=== PATIENT | female | born 1980 | race Caucasian/White ===

== ENCOUNTER 2023-12-23 09:28 | Observation (INO) | payer OTHER, SELFPAY ==
[2023-12-23] VITALS (35 sets, daily range): BP systolic 110–141; BP diastolic 72–92; PULSE 72–94; RESP 10–25; TEMP 36.3–36.6; O2SAT 93–99
--- NOTE | 2023-12-23 09:30 | RT.EKG_ITS ---
APPROVED REPORT Exam: Resting ECG Reason for Exam: CP + SOB Patient Location: E HR:87 bpm ECG Measurements Heart Rate 87 AXIS TN 135 P 69 QRSd 83 QRS 60 QT 364 T 53 QTc 439 Conclusion Sinus rhythm...normal P axis, V-rate 60- 99 Probable left atrial enlargement...P >50mS, <-0.10mV V1
--- NOTE | 2023-12-23 09:56 | DI.CT_ITS ---
Exam(s) CT CHEST PE CTA EXAM: CT CHEST PE CTA CLINICAL HISTORY: chest pain, hemoptysis, cough. TECHNIQUE: Imaging Protocol: Axial CT angiography was performed with multi-slice acquisition and mu lti-planar reconstructions as well as axial, coronal and sagittal MIP reconstructions. Computer aided detection (CAD) was utilized. CONTRAST MATERIAL: Intravenous: Omnipaque 350 Contrast volume:100 ml COMPARISON: No exams were available for comparison FINDINGS: Pulmonary Arteries: No evidence of filling defect to suggest pulmonary emboli. Mediastinum and Deena: No dominant adenopathy or fluid collection. Pulmonary parenchyma: Area of consolidation noted at the infero medial right middle lobe. Milder inf iltrates seen throughout the right middle lobe. Patchy infiltrates also present in posterior right l ower lobe. Pleura: No effusion or pneumothorax. Heart: The heart is not dilated. No coronary artery calcifications are seen. Aorta: Thoracic aorta non-dilated. No dissection. Upper abdomen: No acute findings. Status post cholecystectomy. Prior gastric surgery. Bones: Unremarkable for age. Tubes, Catheters, and Lines: None Soft tissues: Unremarkable. IMPRESSION: No evidence of pulmonary embolism. Right middle and lower lobe pneumonia. Findings called to Dr. Cameron of the emergency department. RADIATION DOSE DELIVERED: 70.1mGy.cm Total DLP DATA REPOSITORY: All CT scans at this facility are submitted to the National Radiology Data Registry (NRDR) Dose Index Registry (DIR) with the [employer] (A[employer]). RADIATION OPTIMIZATION: All CT scans at this facility use at least one of these dose optimization te chniques: automated exposure control; mA and/or kV adjustment per patient size (includes targeted exa ms where dose is matched to clinical indication); or iterative reconstruction.
--- NOTE | 2023-12-23 10:15 | ED.GENADUL_ITS ---
Discharge Plan Disposition Patient Disposition: Admit to [facility] Condition: Serious Discharge Details Chief Complaint: RespSymp Clinical Impression: Pneumonia Primary Care Provider: None,None ED Provider: Levi Cameron Home Meds and New Rx's Prescriptions: No Action azithromycin [Zithromax Z-David] 250 mg tablet See Rx Instructions .ROUTE .COMPLEX Rx Instructions: For 250 mg dose pack: take 500 mg today (day 1), then 250 mg for 4 days (days 2-5) amoxicillin-pot clavulanate 875-125 mg tablet 1 tab PO BID HPI General Mode of arrival: EMS . Date/Time Provider Initiated Documentation: 12/23/23 09:39 . Limitations to Documentation: no limitations . Information obtained by: patient . HPI Narrative: 43-year-old female presents with chief complaint of shortness of breath. Patient notes persistent cough over the past 3 weeks. She developed hemoptysis and was seen at urgent care in [place] 3 days ago. She had an x-ray which s howed right lower lobe pneumonia and was started on azithromycin and amoxicillin. She notes she has been taking the antibiotic but has had nausea and vomiting at times and is concerned that she may not be tolerating amoxicillin. Today shortness of breath was worse and she had associated chest heaviness. Chest discomfort with inspiration and with coughing. No associated fever. Related Data Home Medications ?Medication ?Instructions ?Recorded ?Confirmed amoxicillin 875 mg-potassium 1 tab PO BID 12/23/23 12/23/23 clavulanate 125 mg tablet azithromycin 250 mg tablet See Rx Instructions PO .COMPLEX 12/23/23 12/23/23 (Zithromax Z-David) Allergies Allergy/AdvReac Type Severity Reaction Status Date / Time meperidine (From Demerol) AdvReac Intermediate Other (See Verified 12/23/23 09:39 Comment) General Stated Complaint: RespSymp HERBIE: 3 Review of Systems All systems reviewed & are unremarkable except as noted in HPI and below Constitutional Constitutional: Denies fever(s) Cardiovascular Cardiovascular: Reports as per HPI and Reports dyspnea Respiratory Respiratory: Reports cough and Reports dyspnea Exam Const General: cooperative and no acute distress HENMT Mouth: moist mucous membranes Eyes Conjunctivae: normal conjunctivae Sclera: normal sclerae Neck Neck: trachea midline and supple Resp Effort & Inspection: cough, labored and tachypneic Auscultation: rales bilaterally, no rhonchi and no wheezes Cardio Rate: regular rate and not tachycardic Rhythm: regular rhythm GI Palpation: soft, not firm, no guarding, no masses, not rigid and nontender Skin General skin exam: no rashes or lesions noted Neuro General: patient alert, patient awake, patient oriented x3 and tone normal Extrem General: no edema Psych Appearance: grossly normal Mental Status: mental status grossly normal Course Vital Signs Vital signs: Vital Signs Temperature 36.4 C 12/23/23 09:35 Pulse 90 12/23/23 09:35 Respiratory Rate 20 12/23/23 09:35 Blood Pressure 131/89 12/23/23 09:35 Pulse Oximetry 99 12/23/23 09:35 Temperature 36.4 C 12/23/23 09:53 Temperature Source Temporal Artery Scan 12/23/23 09:53 Pulse 90 12/23/23 09:53 Respiratory Rate 20 12/23/23 09:53 Respiratory Effort Short of Breath, Incrsd Work of Breathing 12/23/23 10:04 Respiratory Depth Normal 12/23/23 10:04 Blood Pressure 131/89 12/23/23 09:53 Blood Pressure Position Sitting 12/23/23 09:53 Pulse Oximetry 99 12/23/23 09:53 Oxygen Delivery Method Room Air 12/23/23 09:53 Oxygen Flow Rate 0 12/23/23 09:53 Pain Level 9 12/23/23 09:53 Lab/Test Results Lab/Test Results: 12/23/23 10:11 Blood Blood Culture - Pending 12/23/23 10:11 Blood Blood Culture - Pending Medical Decision Making 1019 --43-year-old female here with 3 weeks of cough, right lower lobe pneumonia on chest x-ray at urgent care 3 days ago, worsening shortness of breath and chest discomfort despite antibiotics for the past 3 days. Screening EKG was reviewed and interpreted by me: Please see report, sinus rhythm 87 bpm, normal axis. No STEMI. Probable left atrial enlargement noted. Suspect pneumonia, refractory to oral antibiotics. Also concerned that she may not be tolerating oral antibiotics with the vomiting. Consider acute pulmonary embolism and ACS given chest discomfort. Plan to obtain CT of the chest. Plan to initiate treatment with Levaquin IV. 1124 --I obtained and reviewed outside hospital records: [facility] chest x-ray from 12/20/2023 notes focal infiltrate overlying the cardiac silhouette on the lateral view consistent with right middle lobe pneumonia. Patient having nausea. She was given Compazine 10 mg IV. 1150 --notified by nursing that patient was having some tingling sensation in her skin. No rash. Consider adverse reaction to Compazine. I will give Benadryl 25 mg IV. Patient also to receive acetaminophen 1 g IV. 1159 --CT of the chest was reviewed and interpreted by radiology: No evidence of pulmonary embolism. Right middle and lower lobe pneumonia. I spoke with Dr. Núñez, on-call hospitalist, discussed ED presentation and course, he will admit the patient. Lab Data Lab results reviewed: Yes I reviewed the patient's lab results. Labs: 12/23/23 11:00 Blood Blood Culture - Pending 12/23/23 10:30 Blood Blood Culture - Pending Laboratory Tests Range/Units 12/23/23 12/23/23 09:50 10:30 WBC (4.4-10.8) 10^3/uL 9.48 RBC (3.93-5.22) 10^6/uL 4.70 Hgb (11.2-15.7) g/dL 16.0 H Hct (36.0-46.0) % 45.3 MCV (80-95) fL 96 H MCH (27.0-33.0) pg 34.0 H MCHC (32.0-36.0) % 35.3 RDW (11.7-14.6) % 11.4 L Plt Count (130-400) 10^3/uL 402 H MPV (8.0-11.0) fL 9.6 Immature Gran % % 0.2 Neutrophils % % 79.6 Lymphocytes % % 10.7 Monocytes % % 8.5 Eosinophils % % 0.8 Basophils % % 0.2 Nucleated RBC % (0.0-0.3) % 0.0 Absolute Neutrophils (1.2-6.7) 10^3/uL 7.54 H Absolute Lymphocytes (1.2-3.4) 10^3/uL 1.01 L Absolute Monocytes (0.1-0.8) 10^3/uL 0.81 H Absolute Eosinophils (0.0-0.7) 10^3/uL 0.08 Absolute Basophils (0.0-0.2) 10^3/uL 0.02 VBG Lactate (0.6-1.4) mmol/L 0.9 Sodium (136-145) mmol/L 140 Potassium (3.5-5.1) mmol/L 3.4 L Chloride (98-107) mmol/L 103 Carbon Dioxide (21.0-32.0) mmol/L 25.0 Anion Gap (3-11) mmol/L 12.0 H BUN (7-18) mg/dL 8 Creatinine (0.55-1.02) mg/dL 0.9 Est GFR (CKD-EPI 2020) (mL/min/1.73m2) 80.84 Glucose (74-106) mg/dL 81 Calcium (8.5-10.1) mg/dL 9.5 Magnesium (1.8-2.4) mg/dL 2.0 Total Bilirubin (0.2-1.0) mg/dL 0.37 AST (15-37) U/L 25 ALT (14-59) U/L 25 Alkaline Phosphatase (46-116) U/L 74 Troponin I (<or=51) ng/L < 4 NT-Pro-B Natriuret Pep (<300) pg/mL 30 Total Protein (6.4-8.2) g/dL 9.1 H Albumin (3.4-5.0) g/dL 3.9 COVID-19 Source Nasopharynx SARS-CoV-2 (PCR) (Negative) Negative Influenza Type A (PCR) (Negative) Negative Influenza Type B (PCR) (Negative) Negative RSV (PCR) (Negative) Negative Quality:SDOH Health Related Social Needs: No Data to Display PFSH All Active Problems (Updated 12/23/23 @ 12:02 by Levi Cameron MD) Pneumonia (Acute) Social History Smoking/Tobacco Use Status: Never Smoking risk assessment performed?: Yes Alcohol Intake: current Alcohol Intake frequency: a few times a week Alcohol type: hard liquor Drug use: Daily Substance use type: marijuana Details: Pt uses marijuana gummies to sleep 12/23/23 Do you feel safe at home: Yes Do you feel safe in your relationship?: Yes
[2023-12-23 10:42] LABS: Lactate 0.9 mmol/L (0.6-1.4)
[2023-12-23 10:46] LABS: Abs Immature Grans 0.02 10^3/uL (0.0-0.06); Absolute Basophil Count 0.02 10^3/uL (0.0-0.2); Absolute Eosinophil Count 0.08 10^3/uL (0.0-0.7); Absolute Lymphocyte Count 1.01 10^3/uL (1.2-3.4); Absolute Monocyte Count 0.81 10^3/uL (0.1-0.8); Absolute Neutrophil Count 7.54 10^3/uL (1.2-6.7); Basophils % 0.2 %; Eosinophils % 0.8 %; HCT 45.3 % (36.0-46.0); Immature Grans % 0.2 %; Lymphocytes % 10.7 %; MCHC 35.3 % (32.0-36.0); MCV 96 fL (80-95); MPV 9.6 fL (8.0-11.0); Monocytes % 8.5 %; Neutrophils % 79.6 %; Platelet Count 402 10^3/uL (130-400); RDW 11.4 % (11.7-14.6); RDW-SD 40.3 fL; WBC 9.48 10^3/uL (4.4-10.8)
[2023-12-23 10:47] LABS: COVID-19 PCR Negative (Negative); Influenza A PCR Negative (Negative); Influenza B PCR Negative (Negative); RSV PCR Negative (Negative)
[2023-12-23 10:49] LABS: Source Nasopharynx
[2023-12-23] MEDS: levoFLOXacin 750 MG/150 ML BAG 100 MG IVPB (11:04)
[2023-12-23 11:12] LABS: ALT 25 U/L (14-59); AST 25 U/L (15-37); Albumin 3.9 g/dL (3.4-5.0); Alkaline Phosphatase 74 U/L (46-116); BUN 8 mg/dL (7-18); Bilirubin, Total 0.37 mg/dL (0.2-1.0); CREATININE 0.9 mg/dL (0.55-1.02); Calcium 9.5 mg/dL (8.5-10.1); Chloride 103 mmol/L (98-107); Estimated GFR 80.84 (mL/min/1.73m2); Glucose 81 mg/dL (74-106); NT-proBNP 30 pg/mL (<300); Potassium 3.4 mmol/L (3.5-5.1); Sodium 140 mmol/L (136-145); Total Protein 9.1 g/dL (6.4-8.2); Troponin I < 4 ng/L (<or=51)
[2023-12-23] MEDS: Prochlorperazine 10 MG/2 ML VIAL IVP (11:24)
[2023-12-23] MEDS: Normal Saline - Diluent 50 ML VIAL IJ (11:33)
[2023-12-23] MEDS: Omnipaque 350 MG/ML 500 ML BTL-Imaging package IJ (11:34)
[2023-12-23] MEDS: diphenhydrAMINE 50 MG/ML VIAL 25 MG IVP (11:52)
[2023-12-23] MEDS: ACETAMINOPHEN 1,000 MG/100 ML BAG 400 MG IVPB (11:52)
--- NOTE | 2023-12-23 12:14 | HPE_ITS ---
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 Núñez History of Present Illness History of Present Illness Chief Complaint: Shortness of breath Narrative: This 43-year-old female patient with a past medical history of previous diagnosis of pneumonia treated at [facility] with outpatient oral antibiotic therapy with Augmentin and azithromycin presented to the ED at [facility] today for evaluation of worsening shortness of breath. Patient reported persistent persistent cough over the past 3 weeks with the development of hemoptysis for which she was seen at urgent care in [place] 3 days ago resulting in chest x- ray showing a right lower lobe pneumonia and treated with azithromycin and Augmentin. Patient reported compliance with antibiotic therapy with side effect of nausea and vomiting at times and concerns regarding tolerance to the oral antibiotic regimen. Arrival to the ED the patient reported chest discomfort with inspiration and coughing; no reports of fevers. The patient presented to the ED with normal vital signs, no hypoxia tachypnea or tachycardia. DDx: Community acquired pneumonia, pulmonary embolism, upper respiratory viral infection. Tuberculosis in the setting of hemoptysis most likely not probable in the absence of night sweats,recent weight loss and the regional the epidemiology . Workup in the ED was noticeable for the absence of leukocytosis, negative lactate, hemoglobin at 16 most likely due to hemoconcentration in the setting of nausea vomiting, potassium of 3.4. CTA showed no pulmonary emboli but positive for tremayne medial right middle lobe consolidation with milder infiltrates since to the right middle lobe; also felt patchy infiltrates seen to the posterior right lower lobe. EKG showed sinus rhythm without significant markers for ischemia or injury; QTc was 0.439 seconds. The hospitalist was consulted and the patient admitted to the medical surgical floor for evaluation and management of failed outpatient treatment for community acquired pneumonia. Treatment with IV levofloxacin was initiated in the ED. Oral potassium replacement also ordered as well as as needed antiemetics. When seen in the ED , the patient reported headache, chills, night sweats, dizziness, fatigue limiting her capacity to go the second floor of her house where her room and bathrooms are. Also reporting nausea, vomiting and diarrhea with decreased urine output. The patient denied objective fevers, syncope, chest pain, abdominal pain, or dysuria. Patient denied recent sick contact, traveling outside of the area. Patient lives at home with her daughter and their dog.The [facility]; was in the [employer]. The patient is a full code Review of Systems All systems reviewed & are unremarkable except as noted in HPI and below PFSH All Active Problems (Updated 12/23/23 @ 14:07 by Lynda Milian APRN) History of cholecystectomy (Chronic) CVA (cerebral vascular accident) (Chronic) Discharge planning issues (Acute) On deep vein thrombosis (DVT) prophylaxis (Acute) Pneumonia (Acute) Family History (Updated 12/23/23 @ 14:18 by Lynda Milian APRN) Father Heart disease Social History Smoking/Tobacco Use Status: Never Smoking risk assessment performed?: Yes Alcohol Intake: current Alcohol Intake frequency: a few times a week Alcohol type: hard liquor Drug use: Daily Substance use type: marijuana Details: Pt uses marijuana gummies to sleep 12/23/23 Do you feel safe at home: Yes Do you feel safe in your relationship?: Yes Meds Allergies and Home Medications Allergies Allergy/AdvReac Type Severity Reaction Status Date / Time meperidine (From Demerol) AdvReac Intermediate Other (See Verified 12/23/23 12:54 Comment) prochlorperazine (From AdvReac Intermediate Other (See Verified 12/23/23 12:54 Compazine) Comment) Home Medications ?Medication ?Instructions ?Recorded ?Confirmed ?Type amoxicillin 875 mg-potassium 1 tab PO BID 12/23/23 12/23/23 History clavulanate 125 mg tablet azithromycin 250 mg tablet See Rx Instructions PO .COMPLEX 12/23/23 12/23/23 History (Zithromax Z-David) Exam Narrative Exam Narrative: Constitutional The patient on stretcher without acute distress HENMT: Head is atraumatic, normocephalic, no lymphadenopathy. Facial structures with normal appearance Eyes: Well aligned, intact ROM Neck: Normal ROM, no meningeal signs Neuro:alert and oriented to self, person, place, time and situation. No neurological focal deficit, PERRLA on ambient light Chest:Chest is symmetrical and normal appearance Resp: Normal respiratory pattern, speaks in full sentences, unlabored breathing, diminished right lung lynn w LL fine crackles Cardio: regular rhythm, S1, S2, no murmur, capillary refill<3 sec., bilateral radial and dorsalis pedis pulses are positive, palpable GI: Abdomen is not distended, soft and non tender, bowel sounds are present : Negative Costovertebral angle tenderness, no bladder distension Back/spine/Pelvis: No back tenderness, normal alignment Integumentary: No skin lesions or rash Extremities: strength 5/5 to bilateral lower and upper extremities Psych: RASS 0, congruent mood and normal affect. Results Labs 12/23/23 10:30 12/23/23 10:30 Labs: Laboratory Results - last 24 hr 12/23/23 12/23/23 09:50 10:30 WBC 9.48 RBC 4.70 Hgb 16.0 H Hct 45.3 MCV 96 H MCH 34.0 H MCHC 35.3 RDW 11.4 L Plt Count 402 H MPV 9.6 Immature Gran % 0.2 Neutrophils % 79.6 Lymphocytes % 10.7 Monocytes % 8.5 Eosinophils % 0.8 Basophils % 0.2 Nucleated RBC % 0.0 Absolute Neutrophils 7.54 H Absolute Lymphocytes 1.01 L Absolute Monocytes 0.81 H Absolute Eosinophils 0.08 Absolute Basophils 0.02 VBG Lactate 0.9 Sodium 140 Potassium 3.4 L Chloride 103 Carbon Dioxide 25.0 Anion Gap 12.0 H BUN 8 Creatinine 0.9 Est GFR (CKD-EPI 2020) 80.84 Glucose 81 Calcium 9.5 Magnesium 2.0 Total Bilirubin 0.37 AST 25 ALT 25 Alkaline Phosphatase 74 Troponin I < 4 NT-Pro-B Natriuret Pep 30 Total Protein 9.1 H Albumin 3.9 COVID-19 Source Nasopharynx SARS-CoV-2 (PCR) Negative Influenza Type A (PCR) Negative Influenza Type B (PCR) Negative RSV (PCR) Negative Last Vital Signs Temp 36.4 C 12/23/23 09:53 Pulse 77 12/23/23 11:46 Resp 10 L 12/23/23 11:46 BP 141/92 H 12/23/23 11:46 Pulse Ox 94 12/23/23 11:46 Time Spent Time spent with Patient: >75 minutes Time was spent: preparing to see the patient(eg.review tests), obtaining and/or reviewing separately otained hiistory, ordering medications,tests, procedures, referring, communicating with other health assisted living care manager, indepentently interpreting results, counseling the patient and care coordination
[2023-12-23] MEDS: Potassium Chloride 20 MEQ TABCR 40 MEQ PO (12:47)
--- NOTE | 2023-12-23 13:22 | W.PC.ACHO ---
Registration Status: Primary Language: Preferred Language: ED Information & Data Chief Complaint RespSymp 12/23/23 10:23 Triage Note Pt arrives to ED c/o CP and 12/23/23 09:35 SOB. Pt was dx w/ pneumonia on 12/[facility] by [facility] and was started on ABX. Pt has had worsening sx since Tuesday. Illness x 3 weeks + hemoptysis which is why pt went to [facility]. Most Recent Vital Signs Temperature 36.4 C 12/23/23 09:53 Temperature Source Temporal Artery Scan 12/23/23 09:53 Pulse 80 12/23/23 13:16 Pulse 81 12/23/23 13:16 Respiratory Rate 21 12/23/23 13:16 Respiratory Effort Short of Breath, Incrsd Work of Breathing 12/23/23 10:04 Respiratory Depth Normal 12/23/23 10:04 Blood Pressure 124/89 12/23/23 13:16 Blood Pressure Mean 100 12/23/23 13:16 Blood Pressure Position Sitting 12/23/23 09:53 Pulse Oximetry 96 12/23/23 13:10 Oxygen Delivery Method Room Air 12/23/23 09:53 Oxygen Flow Rate 0 12/23/23 09:53 Pain Level 9 12/23/23 09:53 Allergies meperidine (From Demerol) Adverse Reaction (Intermediate, Verified 12/23/23 12:54) Other (See Comment) Chills + vomiting per pt prochlorperazine (From Compazine) Adverse Reaction (Intermediate, Verified 12/23/23 12:54) Other (See Comment) Pt states it made her skin crawl. Precautions Isolation Standard precaution 12/23/23 09:45 Active Medications Generic Name Dose Route Start Last Admin Trade Name Eliuq PRN Reason Stop Dose Admin Iohexol 500 ml 12/23/23 11:45 12/23/23 11:34 Omnipaque 350 Mg/Ml 500 Ml Btl-Imaging Package IJ 01/22/24 23:59 100 ml DIRECTED MAI Administration Sodium Chloride 50 ml 12/23/23 11:45 12/23/23 11:33 Normal Saline - Diluent 50 Ml Vial IJ 50 ml .FOR DI USE MAI Administration IV IV Catheter Type [Right Peripheral IV Antecubital] IV Catheter Gauge [Right 18 Antecubital] Diagnostics 11/15/24 11/15/24 Range/Units 10:30 09:50 WBC 9.48 (4.4-10.8) 10^3/uL RBC 4.70 (3.93-5.22) 10^6/uL Hgb 16.0 H (11.2-15.7) g/dL Hct 45.3 (36.0-46.0) % MCV 96 H (80-95) fL MCH 34.0 H (27.0-33.0) pg MCHC 35.3 (32.0-36.0) % RDW 11.4 L (11.7-14.6) % Plt Count 402 H (130-400) 10^3/uL MPV 9.6 (8.0-11.0) fL Immature Gran % 0.2 % Neutrophils % 79.6 % Lymphocytes % 10.7 % Monocytes % 8.5 % Eosinophils % 0.8 % Basophils % 0.2 % Nucleated RBC % 0.0 (0.0-0.3) % Absolute Neutrophils 7.54 H (1.2-6.7) 10^3/uL Absolute Lymphocytes 1.01 L (1.2-3.4) 10^3/uL Absolute Monocytes 0.81 H (0.1-0.8) 10^3/uL Absolute Eosinophils 0.08 (0.0-0.7) 10^3/uL Absolute Basophils 0.02 (0.0-0.2) 10^3/uL VBG Lactate 0.9 (0.6-1.4) mmol/L Sodium 140 (136-145) mmol/L Potassium 3.4 L (3.5-5.1) mmol/L Chloride 103 (98-107) mmol/L Carbon Dioxide 25.0 (21.0-32.0) mmol/L Anion Gap 12.0 H (3-11) mmol/L BUN 8 (7-18) mg/dL Creatinine 0.9 (0.55-1.02) mg/dL Est GFR (CKD-EPI 2020) 80.84 (mL/min/1.73m2) Glucose 81 (74-106) mg/dL Calcium 9.5 (8.5-10.1) mg/dL Magnesium 2.0 (1.8-2.4) mg/dL Total Bilirubin 0.37 (0.2-1.0) mg/dL AST 25 (15-37) U/L ALT 25 (14-59) U/L Alkaline Phosphatase 74 (46-116) U/L Troponin I < 4 (<or=51) ng/L NT-Pro-B Natriuret Pep 30 (<300) pg/mL Total Protein 9.1 H (6.4-8.2) g/dL Albumin 3.9 (3.4-5.0) g/dL COVID-19 Source Nasopharynx SARS-CoV-2 (PCR) Negative (Negative) Influenza Type A (PCR) Negative (Negative) Influenza Type B (PCR) Negative (Negative) RSV (PCR) Negative (Negative) 12/23/23 11:00 Blood Culture - Pending Blood 12/23/23 10:30 Blood Culture - Pending Blood Intake and Output - 24 Hour Total 12/23/23 09:28 thru 12/23/23 13:17 Intake Total 250 Balance 250 Weight 72.575 kg Intake: IV 250 Falls Risk Assessment History of Falls No History 12/23/23 09:54 Contributing Factors No Factors 12/23/23 09:54 Ambulatory Aids Independent 12/23/23 09:54 Tubes/Lines None 12/23/23 09:54 Gait Evaluation No gait disturbance 12/23/23 09:54 Cognition No cognitive impairment 12/23/23 09:54 Fall Total Score 0 12/23/23 09:54 Level of Risk Standard/Low Risk 12/23/23 09:54 Problems (Last Reviewed 12/23/23 @ 10:18 by Levi Cameron MD) Discharge planning issues (Acute) On deep vein thrombosis (DVT) prophylaxis (Acute) Pneumonia (Acute) v v v v v v v v v Sending and/or Receiving Nurses: Please use comment section below to note any information pertinent to the patient hand-off not included above. Information / Comments: Report received from: NINA Lindsey from ED at 1320.
--- NOTE | 2023-12-23 14:35 | PDOC.CMIN ---
Date of service: 12/23/23 Time of Service: 14:35 Care Management Initial Assmt Initial Assessment Reason for Hospitalization: community acquired pneumonia Functional Status/Living Situation Patient Presentation: Rg was sitting up in bed when CM met with her. She was pleasant in interaction and engaged easily with CM. Rg was admitted with community acquired pneumonia. She was seen at Urgent Care in [place] 3 days ago and was started on antibiotics. She had nausea and vomiting while taking the antibiotics and did not improve, so came to the ED at [facility]. She has a loose cough but is afebrile with a normal white blood count. rg lives in [place] with her daughter Lety. She has one other daughter who lives in [place]. Rg is a , having served in the [employer]. [facility] and is 40% service connected. Susan does not currently have a PCP but plans to establish at the [facility] in [place]. 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 She is independent at baseline and does not receive any community resources. Town of Residence: [place] Resides with: Child (daughter Lety lives with her) Significant Other/Family: Out of area (daughter in [place]) Natural Supports: family Employment Status: Employed Instrumental Activities of Daily Living (ADLs): Independent Medications Medication Management: No Issues/Barriers identified Physical Functioning/Mobility Assistive Device: none Advance Directives Advance Directives: Do you have an Advance Directive: AD On File at [facility]: N 12/23/23 11:19 Date Asked 12/23/23 12/23/23 11:19 AD Date Reviewed COLST On File at [facility] COLST Date Scanned Comment: not interested at this time Code Status Resuscitation Status Full Code Portal Pt does not currently have a portal and education provided: Yes Insurance Coverage/Financial Issues Insurance: [place] Self pay Care Team Visit Care Team Role Provider Type None None Primary Care Provider NON-[facility] STAFF PHYSICIAN Kirill Seo Other Providers OTHER Levi Cameron MD Emergency Provider [facility] STAFF PHYSICIAN Gordon Núñez MD Admit Provider [facility] STAFF PHYSICIAN Attending Provider Discharge Potential Discharge Needs: PCP F/U Appt Anticipated Barriers to Discharge: None Identified Patient/Family Education Needs: Review discharge instructions, discuss Ask Me Three Transportation: Private vehicle Plan: Anticipate Rg will be discharged home with no new services. She will follow up with the T-Doc appointment that will be made for her at discharge and transport with family. CM will follow and continue to assess for discharge concerns. PFSH All Active Problems (Updated 12/23/23 @ 14:07 by Lynda Milian APRN) History of cholecystectomy (Chronic) CVA (cerebral vascular accident) (Chronic) Discharge planning issues (Acute) On deep vein thrombosis (DVT) prophylaxis (Acute) Pneumonia (Acute) Family History (Updated 12/23/23 @ 14:18 by Lynda Milian APRN) Father Heart disease Social History Smoking/Tobacco Use Status: Never Smoking risk assessment performed?: Yes Alcohol Intake: current Alcohol Intake frequency: a few times a week Alcohol type: hard liquor Drug use: Daily Substance use type: marijuana Details: Pt uses marijuana gummies to sleep 12/23/23 Housing: house Do you feel safe at home: Yes Do you feel safe in your relationship?: Yes SDOH(Care Management) Screening Will the Patient Participate in the Screening?: Yes Do you worry about having a steady place to live?: no Problems where you live: no known problems In the past 12 months, have you had to go without electric, gas, oil or water in your home?: no Have you or anyone in your house had to go without enough food to eat?: no Has lack of transportation kept you from medical appointments or from doing things needed for daily living?: no Has anyone in your support network made you feel unsafe for any reason?: no Health Related Social Needs Health related social needs details: no needs at this time
[2023-12-23] MEDS: Benzonatate 100 MG CAP PO ×2 (14:53→19:57)
[2023-12-23] MEDS: Enoxaparin 40 MG/0.4 ML SYR SC (14:54)
[2023-12-23] MEDS: Normal Saline Flush 10 ML SYR IVP ×2 (14:54→19:57)
--- NOTE | 2023-12-23 15:01 | PT.INNT ---
PT Notes Visit Reasons: Failed CAP outpatient therapy Patient was seen for new referral for assistive device. She verbalized feeling a lot better, being able to walk from bathroom back to the bed without any device right before PT came in for evaluation. She stated that for the past 4 weeks at home, she has not been eating well and has been weak from the worsening shortness of breath and coughing from evolving pneumonia. She feels that with rest, improving appetite, and medication intake for pneumonia she would go back to how she was. She does not report any new motor deficit/residual deficit from previous CVA when she was 28 years old. Patient prefers to rest for now and does not feel the need for physical therapy. She adds that she will let the nurse know if she feels like she needs help with mobility or strengthening. 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
[2023-12-23] MEDS: guaiFENesin 600 MG TABCR PO (19:57)
[2023-12-24 03:00] VITALS: BP 120/80; PULSE 90; RESP 20; TEMP 36.6; O2SAT 97
[2023-12-24 06:43] LABS: Abs Immature Grans 0.02 10^3/uL (0.0-0.06); Absolute Basophil Count 0.02 10^3/uL (0.0-0.2); Absolute Neutrophil Count 3.59 10^3/uL (1.2-6.7); Basophils % 0.4 %; Eosinophils % 3.6 %; HCT 41.7 % (36.0-46.0); HGB 14.7 g/dL (11.2-15.7); Immature Grans % 0.4 %; Lymphocytes % 18.1 %; MCH 33.6 pg (27.0-33.0); MCHC 35.3 % (32.0-36.0); MCV 95 fL (80-95); MPV 9.9 fL (8.0-11.0); Monocytes % 12.7 %; Neutrophils % 64.8 %; Platelet Count 373 10^3/uL (130-400); RBC 4.37 10^6/uL (3.93-5.22); RDW 11.3 % (11.7-14.6); RDW-SD 39.8 fL; WBC 5.53 10^3/uL (4.4-10.8)
[2023-12-24 07:21] LABS: ALT 18 U/L (14-59); AST 19 U/L (15-37); Albumin 3.2 g/dL (3.4-5.0); Alkaline Phosphatase 64 U/L (46-116); Anion Gap 9.2 mmol/L (3-11); BUN 7 mg/dL (7-18); Bilirubin, Total 0.35 mg/dL (0.2-1.0); CO2 22.8 mmol/L (21.0-32.0); CREATININE 0.7 mg/dL (0.55-1.02); Calcium 9.1 mg/dL (8.5-10.1); Chloride 106 mmol/L (98-107); Glucose 85 mg/dL (74-106); Potassium 3.9 mmol/L (3.5-5.1); Sodium 138 mmol/L (136-145); Total Protein 7.7 g/dL (6.4-8.2)
[2023-12-24] MEDS: levoFLOXacin 750 MG/150 ML BAG 100 MG IVPB (07:23)
[2023-12-24] MEDS: guaiFENesin 600 MG TABCR PO (07:24)
[2023-12-24] MEDS: Normal Saline Flush 10 ML SYR IVP (07:24)
[2023-12-24] MEDS: Benzonatate 100 MG CAP PO (07:24)
[2023-12-24 07:37] VITALS: BP 120/82; PULSE 64; RESP 20; TEMP 36.6
[2023-12-24] MEDS: Prochlorperazine 10 MG/2 ML VIAL 5 MG IVP (08:12)
[2023-12-24] MEDS: Acetaminophen 500 MG TAB 1000 MG PO (08:29)
[2023-12-24 09:53] VITALS: PULSE 84; TEMP 36.4; O2SAT 99
[2023-12-24 11:23] VITALS: BP 129/89; PULSE 71; RESP 19; TEMP 36.5; O2SAT 100
--- NOTE | 2023-12-24 12:25 | W.PM.DS.N ---
Date of service: 12/24/23 Time of Service: 12:25 DS: Diagnosis Discharge Diagnosis (1) Pneumonia: Status: Acute (2) On deep vein thrombosis (DVT) prophylaxis: Status: Acute (3) CVA (cerebral vascular accident): Status: Chronic (4) Discharge planning issues: Status: Acute Discharge Plan Disposition Patient Disposition: Home Condition: Improving Discharge Details Reason For Visit: Failed CAP outpatient therapy Admit Date/Time: 12/23/23 12:30 Admit Provider: Gordon Núñez Attending Provider: Gordon Núñez Primary Care Provider: None,None Hospital Course Hospital Course: This is a 43-year-old female who was admitted to the hospital after failing outpatient therapy for community-acquired pneumonia. While she was in the ED CT scan was performed and showed right middle lobe pneumonia. Her labs were otherwise fairly benign but she was admitted for this finding. On the day after admission it will be the 16 the patient asked to be discharged home which we agree. I will send over prescription for Levaquin to her pharmacy. I have also recommended that the patient take a probiotic while taking this medication as she did have some episodes with nausea and vomiting on her course of Augmentin and Zithromax. Patient will be discharged to good health. Home Meds and New Rx's Prescriptions: No Action azithromycin [Zithromax Z-David] 250 mg tablet See Rx Instructions .ROUTE .COMPLEX Rx Instructions: For 250 mg dose pack: take 500 mg today (day 1), then 250 mg for 4 days (days 2-5) amoxicillin-pot clavulanate 875-125 mg tablet 1 tab PO BID Discharge Instructions Activity:: Activity as Tolerated Equipment/Supplies:: No Equipment Needed Diet:: As Tolerated Discharge Orders Discharge Orders: Discharge Order (Routine); Ordered 12/24/23 Ordered By: Gordon Núñez DS: Summary Time Spent with Patient providing and/or coordinating discharge services: Less than 30 minutes Status at Discharge Functional status at discharge: independent ambulation Overall status at discharge: patient is back to baseline Mental Status: mental status grossly normal Speech and Movement: speech and movement normal Mood: congruent mood Affect: normal affect Quality:SDOH Health Related Social Needs: Health related social needs details no needs at this time Health related social needs details: no needs at this time Exam Narrative Exam Narrative: heent: ncat mm neck: no lad/jvd card rrr no mrg pulm: ctab Psych Mental Status: mental status grossly normal Speech and Movement: speech and movement normal Mood: congruent mood Affect: normal affect DS: Data Vitals/I&O Vitals and I&O: Vital Signs Temperature 36.5 C 12/24/23 11:23 Temperature Source Temporal Artery Scan 12/24/23 11:23 Pulse 71 12/24/23 11:23 Pulse Rhythm Regular 12/23/23 13:43 Pulse 83 12/23/23 13:20 Respiratory Rate 19 12/24/23 11:23 Respiratory Effort Normal, Non-Labored 12/23/23 13:43 Respiratory Depth Normal 12/23/23 13:43 Respiratory Pattern Normal 12/23/23 13:43 Blood Pressure 129/89 12/24/23 11:23 Blood Pressure Mean 100 12/23/23 13:16 Blood Pressure Position Sitting 12/23/23 09:53 Pulse Oximetry 100 12/24/23 11:23 Oxygen Delivery Method Room Air 12/24/23 11:23 Oxygen Flow Rate 0 12/24/23 11:23 Pain Level 0 12/24/23 11:23 Comment RN in room 12/23/23 15:16 Intake & Output 12/23/23 12/24/23 12/24/23 23:59 11:59 23:59 Intake Total 250 / 250 150 / 150 Balance 250 / 250 150 / 150 Weight 72.575 kg Intake: IV 250 / 250 150 / 150 Other: Urine Color Yellow Urine Appearance Clear Urine Odor Normal Comment several independent voids into toilet this shift Data Completed and Pending Labs on day of discharge: Labs from last 24 hours 12/24/23 12/23/23 06:15 17:30 WBC 5.53 RBC 4.37 Hgb 14.7 Hct 41.7 MCV 95 MCH 33.6 H MCHC 35.3 RDW 11.3 L Plt Count 373 MPV 9.9 Immature Gran % 0.4 Neutrophils % 64.8 Lymphocytes % 18.1 Monocytes % 12.7 Eosinophils % 3.6 Basophils % 0.4 Nucleated RBC % 0.0 Absolute Neutrophils 3.59 Absolute Lymphocytes 1.00 L Absolute Monocytes 0.70 Absolute Eosinophils 0.20 Absolute Basophils 0.02 Sodium 138 Potassium 3.9 Chloride 106 Carbon Dioxide 22.8 Anion Gap 9.2 BUN 7 Creatinine 0.7 Est GFR (CKD-EPI 2020) 109.30 Glucose 85 Calcium 9.1 Total Bilirubin 0.35 AST 19 ALT 18 Alkaline Phosphatase 64 Total Protein 7.7 Albumin 3.2 L Urine Legionella Ag Pending 12/23/23 11:00 Blood Blood Culture - Pending 12/23/23 10:30 Blood Blood Culture - Pending Preliminary micro results at discharge 12/23/23 11:00 Blood Culture - Pending Blood 12/23/23 10:30 Blood Culture - Pending Blood PFSH All Active Problems (Updated 12/23/23 @ 14:07 by Lynda Milian APRN) History of cholecystectomy (Chronic) CVA (cerebral vascular accident) (Chronic) Discharge planning issues (Acute) On deep vein thrombosis (DVT) prophylaxis (Acute) Pneumonia (Acute) Family History (Updated 12/23/23 @ 14:18 by Lynda Milian APRN) Father Heart disease Social History Smoking/Tobacco Use Status: Never Smoking risk assessment performed?: Yes Alcohol Intake: current Alcohol Intake frequency: a few times a week Alcohol type: hard liquor Drug use: Daily Substance use type: marijuana Details: Pt uses marijuana gummies to sleep 12/23/23 Housing: house Do you feel safe at home: Yes Do you feel safe in your relationship?: Yes Time Spent with Patient Time Spent with Patient: <45 minutes Time was spent: preparing to see the patient(eg.review tests), obtaining and/or reviewing separately otained hiistory, ordering medications,tests, procedures, referring, communicating with other health medicare coordinator, indepentently interpreting results, counseling the patient and care coordination
--- NOTE | 2023-12-24 12:32 | DSE_ITS ---
Date of service: 12/25/23 Time of Service: 15:40 DS: Diagnosis Discharge Diagnosis (1) Pneumonia: Status: Acute Discharge Plan Disposition Patient Disposition: Home Condition: Improving Discharge Details Reason For Visit: Failed CAP outpatient therapy Admit Date/Time: 12/23/23 12:30 Admit Provider: Gordon Núñez Attending Provider: Gordon Núñez Primary Care Provider: None,None Hospital Course Hospital Course: This is a 43-year-old female who was admitted to the hospital after failing outpatient therapy for community-acquired pneumonia. While she was in the ED CT scan was performed and showed right middle lobe pneumonia. Her labs were otherwise fairly benign but she was admitted for this finding. On the day after admission it will be the 16 the patient asked to be discharged home which we agree. I will send over prescription for Levaquin to her pharmacy. I have also recommended that the patient take a probiotic while taking this medication as she did have some episodes with nausea and vomiting on her course of Augmentin and Zithromax. Patient will be discharged to good health. Home Meds and New Rx's Prescriptions: New levofloxacin 750 mg Tablet 750 mg PO QAM Qty: 7 0RF levofloxacin 750 mg tablet 750 mg PO DAILY Qty: 7 0RF Discontinued azithromycin [Zithromax Z-David] 250 mg tablet See Rx Instructions .ROUTE .COMPLEX Rx Instructions: For 250 mg dose pack: take 500 mg today (day 1), then 250 mg for 4 days (days 2-5) amoxicillin-pot clavulanate 875-125 mg tablet 1 tab PO BID Discharge Instructions Stand Alone Forms: Nursing Discharge Form Referrals: None,None [Primary Care Provider] - (Please see your PCP within a 7-10 days for a hospital follow up ) Activity:: Activity as Tolerated Equipment/Supplies:: No Equipment Needed Diet:: As Tolerated Discharge Orders Discharge Orders: Discharge Order (Routine); Ordered 12/24/23 Ordered By: Gordon Núñez Discharge Data Discharge Date/Time-TO BE ENTERED AT DEPARTURE: 12/24/23 12:46 DS: Summary Time Spent with Patient providing and/or coordinating discharge services: Greater than 30 minutes Status at Discharge Functional status at discharge: independent ambulation Overall status at discharge: patient is back to baseline Mental Status: mental status grossly normal Speech and Movement: speech and movement normal Mood: congruent mood Affect: normal affect Quality:SDOH Health Related Social Needs: Health related social needs details no needs at this t jocelyn Health related social needs details: no needs at this time Exam Psych Mental Status: mental status grossly normal Speech and Movement: speech and movement normal Mood: congruent mood Affect: normal affect DS: Data Vitals/I&O Vitals and I&O: Vital Signs Temperature 36.5 C 12/24/23 11:23 Temperature Source Temporal Artery Scan 12/24/23 11:23 Pulse 71 12/24/23 11:23 Pulse Rhythm Regular 12/23/23 13:43 Pulse 83 12/23/23 13:20 Respiratory Rate 19 12/24/23 11:23 Respiratory Effort Normal, Non-Labored 12/23/23 13:43 Respiratory Depth Normal 12/23/23 13:43 Respiratory Pattern Normal 12/23/23 13:43 Blood Pressure 129/89 12/24/23 11:23 Blood Pressure Mean 100 12/23/23 13:16 Blood Pressure Position Sitting 12/23/23 09:53 Pulse Oximetry 100 12/24/23 11:23 Oxygen Delivery Method Room Air 12/24/23 11:23 Oxygen Flow Rate 0 12/24/23 11:23 Pain Level 0 12/24/23 11:23 Comment RN in room 12/23/23 15:16 Intake & Output 12/23/23 12/24/23 12/24/23 23:59 11:59 23:59 Intake Total 250 / 250 150 / 150 Balance 250 / 250 150 / 150 Weight 72.575 kg Intake: IV 250 / 250 150 / 150 Other: Urine Color Yellow Urine Appearance Clear Urine Odor Normal Comment several independent voids into toilet this shift Data Completed and Pending Labs on day of discharge: Labs from last 24 hours 12/24/23 12/23/23 06:15 17:30 WBC 5.53 RBC 4.37 Hgb 14.7 Hct 41.7 MCV 95 MCH 33.6 H MCHC 35.3 RDW 11.3 L Plt Count 373 MPV 9.9 Immature Gran % 0.4 Neutrophils % 64.8 Lymphocytes % 18.1 Monocytes % 12.7 Eosinophils % 3.6 Basophils % 0.4 Nucleated RBC % 0.0 Absolute Neutrophils 3.59 Absolute Lymphocytes 1.00 L Absolute Monocytes 0.70 Absolute Eosinophils 0.20 Absolute Basophils 0.02 Sodium 138 Potassium 3.9 Chloride 106 Carbon Dioxide 22.8 Anion Gap 9.2 BUN 7 Creatinine 0.7 Est GFR (CKD-EPI 2020) 109.30 Glucose 85 Calcium 9.1 Total Bilirubin 0.35 AST 19 ALT 18 Alkaline Phosphatase 64 Total Protein 7.7 Albumin 3.2 L Urine Legionella Ag Pending 12/23/23 11:00 Blood Blood Culture - Pending 12/23/23 10:30 Blood Blood Culture - Pending Preliminary micro results at discharge 12/23/23 11:00 Blood Culture - Pending Blood 12/23/23 10:30 Blood Culture - Pending Blood PFSH All Active Problems (Updated 12/25/23 @ 15:40 by Gordon Núñez MD) History of cholecystectomy (Chronic) Pneumonia (Acute) Medical History (Updated 12/25/23 @ 15:40 by Gordon Núñez MD) CVA (cerebral vascular accident) Discharge planning issues On deep vein thrombosis (DVT) prophylaxis Family History (Updated 12/23/23 @ 14:18 by Lynda Milian APRN) Father Heart disease Social History Smoking/Tobacco Use Status: Never Smoking risk assessment performed?: Yes Alcohol Intake: current Alcohol Intake frequency: a few times a week Alcohol type: hard liquor Drug use: Daily Substance use type: marijuana Details: Pt uses marijuana gummies to sleep 12/23/23 Housing: house Do you feel safe at home: Yes Do you feel safe in your relationship?: Yes Time Spent with Patient Time Spent with Patient: <45 minutes Time was spent: preparing to see the patient(eg.review tests), obtaining and/or reviewing separately otained hiistory, ordering medications,tests, procedures, referring, communicating with other health ambulatory care coordinator, indepentently interpreting results, counseling the patient and care coordination
--- NOTE | 2023-12-24 12:50 | CMDISCH_ITS ---
Date of service: 12/24/23 Time of Service: 12:50 LACE Index Scoring Tool Questions: Length of Stay (in days): 1 Was the patient admitted via the E.D.?: Yes Comorbidities: Cerebrovascular Disease E.D. Visits: 1 Answers: Total Score: 6 Risk of Readmission: Low Risk Care Management Discharge Plan Reason for Hospitalization: Pneumonia Discharge Plan: Discharge home via private vehicle with family. Follow up with community providers and discharge plan of care as instructed. Perla will follow up with her PCP at the [facility]. No new services are ordered prior to discharge. Patient/Family Education Needs: Review discharge instructions, limitations, medications and plan to follow up with community providers. Discuss ask me three. SDOH Health Related Social Needs: Health related social needs details no needs at this t jocelyn Health related social needs details: no needs at this time
[2023-12-24 21:58] LABS: Legionella Ag Detection Urine Negative (Negative)
== END 2023-12-24 12:46 | disposition home or self-care (01) ==
LOC: ER 12:02 → MS 13:33
PROVIDERS: Nurse Practitioner Acute Care; Admitting Provider Hospitalist; Emergency Provider Student in an Organized Health Care Education/Training Program; Visit Provider Hospitalist
DX: J18.9 Pneumonia, unspecified organism (principal); Z79.899 Other long term (current) drug therapy; Z79.01 Long term (current) use of anticoagulants; Z86.73 Personal history of transient ischemic attack (TIA), and cerebral infarction without residual deficits
CPT/HCPCS: 00123; 36415; 71275; 80053; 87040; 87449; 87637; 93005; 96365; 96366; 96367; 96372; 96375; 96376; 99285; J1650; 83605; 83735; 83880; 84484; 85025; 93010; 99223; 99239; G0378; J0131; J0780; J1200; J1956